=== PATIENT | male | born 2005 | race African-American/Black ===

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

== ENCOUNTER 2024-05-02 07:41 | Emergency (ER) | payer BC, SELFPAY ==
[2024-05-02] MEDS ORDERED: Acetaminophen 500 MG TAB ONE (08:07)
== END 2024-05-02 09:13 | disposition home or self-care (01) ==
LOC: ERS 07:41
DX: B34.9 Viral infection, unspecified (principal); F17.290 Nicotine dependence, other tobacco product, uncomplicated
CPT/HCPCS: 87428; 99283

== ENCOUNTER 2025-01-09 11:16 | Emergency (ER) | payer SELFPAY ==
[2025-01-09] MEDS ORDERED: predniSONE 20 MG TAB ONE (13:30)
== END 2025-01-09 13:35 | disposition home or self-care (01) ==
LOC: ERS 11:16
DX: J40 Bronchitis, not specified as acute or chronic (principal); J18.9 Pneumonia, unspecified organism; F17.290 Nicotine dependence, other tobacco product, uncomplicated
CPT/HCPCS: 71046; 87428; J7512